=== PATIENT | male | born 1950 | race Caucasian/White ===

== ENCOUNTER → 2016-07-22 | Day surgery (SDC) | payer MEDICARE ==
[~2016-07-22] MED LIST: Acetaminophen TAB* 325 MG PO PRN; Buffered Lidocaine 1% SYR 3ML* 3 ML/SYR SYRINGE INTRADERM ONE; Buffered Lidocaine 1% SYR 3ML* 3 ML/SYR SYRINGE ONE; Bupivacaine 0.5% W/EPI SDV* 30 ML VIAL ONE; Dexamethasone IV* 4 MG/ML 1 ML (4 MG) ONE; DiMENhydriNATE IV* 50 MG/ML VIAL IV PUSH PRN; EPHEDrine (Pressors)* 50 MG/ML VIAL ONE; Famotidine IV* 10 MG/ML 2 ML (20 mg) ONE; HYDROcodone/ACETAMIN 5-325 MG* 1 TAB PO PRN; Ketorolac INJ* 30 MG/ML 1 ML VIAL IV PUSH PRN; Ketorolac INJ* 30 MG/ML 1 ML VIAL ONE; Lidocaine 2% MPF* 2 ML VIAL ONE; Midazolam* 1 MG/ML 2 ML VIAL (2 MG) ONE; Ondansetron INJ* 2 MG/ML VIAL IV PRN; PROCHLORPERAZINE INJ 5 MG/ML 2 ML VIAL IV PRN; Propofol* 10 MG/ML 20 ML BTL IV PUSH ONE; Rocuronium* 10 MG/ML VIAL ONE; fentaNYL* 50 MCG/ML 2 ML VIAL (100 MCG VIAL) IV PRN; fentaNYL* 50 MCG/ML 2 ML VIAL (100 MCG VIAL) ONE
[2016-07-22 17:26] VITALS: BP 134/76
--- NOTE | 2016-07-24 05:25 | OP ---
OPERATIVE REPORT: DATE OF OPERATION: 07/22/16 - SDS DATE OF : 46 SURGEON: Odell Reinoso MD. LATHE OPERATOR: YENI Aguilar. ANESTHESIOLOGIST: Dr. Camarena. ANESTHESIA: General endotracheal. PRE-OP DIAGNOSIS: Symptomatic gallstones. POST-OP DIAGNOSIS: Symptomatic gallstones. OPERATIVE PROCEDURE: Laparoscopic cholecystectomy. ESTIMATED BLOOD LOSS: Minimal. IV FLUIDS: Crystalloid. SPECIMEN: Gallbladder and contents. DRAINS: None. COMPLICATIONS: None. COUNT: The instrument, needle, and sponge counts were correct. DESCRIPTION OF PROCEDURE: The patient was brought to the operating room and placed on the table in supine position. Sequential compression devices were placed on both lower extremities. He was positioned and padded appropriately. He was prepped and draped in the usual sterile fashion. Time-out was performed. Local anesthetic was infiltrated into the skin and soft tissue prior to making each incision. Entry to the abdomen was through a transumbilical incision using an open technique. After accessing the peritoneal cavity, carbon dioxide was insufflated to a pressure of 15 mmHg. Initially, a 5-mm optical trocar had been placed at the site. It was exchanged for a 12-mm trocar. 5 mm trocars were placed in the subxiphoid position and two additional trocars in the right upper quadrant, all under direct visualization. The liver appeared normal. The gallbladder appeared to be contracted, with chronic inflammation. There were omental adhesions to this that were taken down using a combination of cautery and sharp dissection. The peritoneum investing the infundibulum was incised with cautery and dissected free using a combination of sharp and blunt dissection with a hook cautery. The dissection on the infundibulum proceeded medially and laterally to fully dissect this out and blunt dissection was used to dissect out the infundibulocystic triangle, identifying the cystic artery and obtaining critical view prior to division. The cystic artery and cystic duct were each doubly clipped and divided. The gallbladder was then freed from its attachments to the liver bed using the hook cautery, staying in an avascular plane. The gallbladder was then placed into a retrieval bag, retrieved through the umbilical port site. The area of dissection was inspected. The clips were noted to be intact and hemostatic. The ports were then removed under direct visualization and carbon dioxide was released. The umbilicus was closed with 3-0 Polysorb in a [id number] fashion to approximate the fascia. Skin incisions were all closed with 4-0 Monocryl in subcuticular fashion. Steri-Strips were applied. The patient tolerated the procedure well, was extubated and transferred to recovery room in stable condition. CC: Sandy Smith MD* [id number]/[facility] #: [id number] MTDD
== END | disposition home or self-care (01) ==
LOC: OR 11:26
PROVIDERS: ATTEND Surgery
DX: K80.10 Calculus of gallbladder with chronic cholecystitis without obstruction (principal); E78.2 Mixed hyperlipidemia; Z87.891 Personal history of nicotine dependence; I45.10 Unspecified right bundle-branch block
CPT/HCPCS: 88304; C1776; J1100; J1885; J2250; J2704; J3010